=== PATIENT | female | born 1945 | race Caucasian/White ===

== ENCOUNTER → 2023-04-12 13:51 | Outpatient (CLI) | payer MEDICARE, OTHER, SELFPAY ==
--- NOTE | 2023-04-12 13:56 | DI.RAD.S_ITS ---
PROCEDURE: XR LUMBAR SPINE MIN 4V INDICATIONS: BACK PAIN TECHNIQUE: 4 views of the lumbar spine were acquired, including bilateral oblique views. COMPARISON: [facility], CT, CT CHEST ABDOMEN PELVIS WITH CONTRAST, 01/27/2023, 11:39. Outside Facility, CR, XR LUMBAR SPINE 2-3V, 09/13/2019, 10:50. FINDINGS: Bones: 5 nonrib-bearing vertebrae are present. There is extensive degenerative change and there is mild dextrocurvature centered at L2. No obvious compression fractures. Multilevel disc height loss and facet arthropathy. Soft tissues: Overlying bowel gas pattern is normal. No suspicious soft tissue calcifications. Oblique images: No pars defects. IMPRESSION: Severe degenerative change, scoliotic curvature, no obvious compression fractures. Dictated by: Ronal Cobb M.D. on 04/12/2023 at 16:33 Approved by: Ronal Cobb M.D. on 04/12/2023 at 16:36
== END ==
PROVIDERS: PCP Nurse Practitioner Family; Referring Provider Physical Medicine & Rehabilitation; Visit Provider Physical Medicine & Rehabilitation
DX: M47.26 Other spondylosis with radiculopathy, lumbar region (principal); M51.16 Intervertebral disc disorders with radiculopathy, lumbar region; M41.26 Other idiopathic scoliosis, lumbar region; M54.9 Dorsalgia, unspecified; Z85.118 Personal history of other malignant neoplasm of bronchus and lung; Z96.643 Presence of artificial hip joint, bilateral
CPT/HCPCS: 72110; 99214

== ENCOUNTER 2023-04-18 10:12 | Outpatient (CLI) | payer MEDICARE, OTHER, SELFPAY ==
[2023-04-18] VITALS (7 sets, daily range): BP systolic 90–128; BP diastolic 47–59; PULSE 62–69; RESP 12–20; TEMP 36.2; O2SAT 93–99
--- NOTE | 2023-04-18 10:45 | DI.RAD.S_ITS ---
PROCEDURE: PAIN L/S TRANSFORAMINAL INJECT INDICATIONS: STENOSIS COMPARISON: [facility], CR, XR LUMBAR SPINE MIN 4V, 04/12/2023, 13:58. FINDINGS: Fluoroscopic spot filming was performed to verify placement of spinal needles at the left L4-5 level(s), as labeled on the films. Appropriate location(s) of the needle tip(s) was confirmed by injection of iodinated contrast. IMPRESSION: Fluoroscopy for pain management. Dictated by: Anjelica Phan M.D. on 04/18/2023 at 13:30 Approved by: Anjelica Phan M.D. on 04/18/2023 at 13:30
[2023-04-18] MEDS: MIDAZOLAM 2 MG/2 ML VIAL IV (11:21)
[2023-04-18] MEDS: iopamidoL 15 ML VIAL 3 ML INJ (11:26)
[2023-04-18] MEDS: DEXAMETHASONE 10 MG/ML VIAL INJ (11:27)
[2023-04-18] MEDS: BETAMETHASONE 30 MG/5 ML MDV 6 MG INJ (11:28)
[2023-04-18] MEDS: BUPIVACAINE 0.25% (PF) VIAL 2 ML INJ (11:28)
--- NOTE | 2023-04-18 11:40 | P.PCN_ITS ---
Date/Time/Diagnoses Date of procedure: 04/18/23 Time of procedure: 11:40 Pre-procedure diagnosis: 1. FORAMINAL STENOSIS WITH LE SYMPTOMS Post-procedure diagnosis: same Procedure Notes Procedure: 1. FLUOROSCOPICALLY GUIDED CONTRAST CONTROLLED TRANSFORAMINAL EPIDURAL STEROID INJECTION - LEFT L4/5 Indications: Erin is referred by NELSON Ag for treatment of Foraminal Stenosis with Left LE Symptoms Physician: Kp Samuel Total Fluoroscopy time (seconds): 11 Total sedation minutes: 14 Complications: none Procedure in detail & Post-procedure care: FINDINGS Foraminal Nerve Root Compression secondary to disc disease and facet hypertrophy DESCRIPTION OF PROCEDURE Following review of allergy and review of potential side effects and complications, including, but not necessarily limited to, infection, allergic reaction, local tissue breakdown, stroke, temporary or permanent nerve injury, paralysis, and possible , the patient indicated that the patient understood and agreed to proceed. An informed consent document was signed by the patient, witnessed by a nurse, and placed in the patient's chart. Additionally, other treatment options including medications, modalities, and physical therapy were reviewed with the patient. After review of previous anaesthesic history and IV conscious sedation the patient was deemed safe to proceed with today?s procedure with IV conscious sedation as ASA class II designation. Safety time-out was performed to confirm patient ID, procedure to be performed and site of procedure. IV sedation was accomplished with a combination of 2mg of Versed administered by the RN after DO order, titrated to patient comfort during the course of the procedure while the patient remained responsive to all verbal commands In the prone position following sterile prep and drape of the lumbar region, the left L4/5 posterior neuroforamen was identified fluoroscopically. The skin was anesthetized via a 25-gauge 1.5-inch needle with 1% lidocaine solution. At this point, a 25-gauge 3.5-inch spinal needle was atraumatically introduced and advanced under fluoroscopic guidance through the posterior left L4/5 neuroforamen to approximately the anterior aspect of the canal. Depth was confirmed on lateral view. Following negative aspiration, injection of approximately 1.5cc of Isovue 200 under live fluoroscopy in the AP view confirmed excellent flow along the nerve root, into the epidural space without vascular or intrathecal uptake observed Radiological data, including multiple fluoroscopic views of the lumbosacral spine, reveal a spinal needle at the left L4/5 posterior neuroforamen. Subsequent views show flow of contrast material flowing superiorly and inferiorly along the nerve root confirming epidural flow. Subsequently, a test dose of 1.5 cc of 1% lidocaine solution was administered and patient was observed for two minutes for signs or symptoms of complications, including abdominal pain, shortness of breath, bilateral upper or lower extremity weakness, nausea and vomiting, prior to steroid injection. At this point, a total of 2cc or 10mg of dexamethasone and 6mg of betamethasone was injected without incident. The procedure tolerated the procedure well without signs or symptoms of complications prior to transfer to the recovery area continued monitoring without incident. The patient was then transferred to the recovery area where they were observed for an appropriate time after the injection. The patient reported a VAS score of 7 prior to the procedure and a post- procedure VAS of 0. POST OP INSTRUCTIONS The patient was provided a Pain Log to continue to record their response to the target-specific procedure prior to follow-up visit with their referring physicia n. Additionally, specific post-injection care instructions and a contact number to our office were provided if concerns arise regarding possible complications associated with the procedure are suspected.
== END 2023-04-18 12:10 | disposition home or self-care (01) ==
LOC: RAD 10:13
PROVIDERS: PCP Nurse Practitioner Family; Referring Provider Physical Medicine & Rehabilitation; Visit Provider Physical Medicine & Rehabilitation
DX: M48.061 Spinal stenosis, lumbar region without neurogenic claudication (principal); M51.16 Intervertebral disc disorders with radiculopathy, lumbar region; M47.26 Other spondylosis with radiculopathy, lumbar region
CPT/HCPCS: 64483; 99152; J0702; J1100; J2250; J3490

== ENCOUNTER → 2023-05-25 12:27 | Outpatient (CLI) | payer MEDICARE, OTHER, SELFPAY ==
--- NOTE | 2023-05-25 12:29 | DI.RAD.S_ITS ---
PROCEDURE: XR CERVICAL SPINE 4V OR 5V INDICATIONS: NECK PAIN TECHNIQUE: 5 views of the cervical spine acquired. COMPARISON: None. FINDINGS: Bones: No fractures or dislocations to the T1 level. Mild, approximately 3 millimeters of C3-C4 degenerative anterolisthesis. Oblique images demonstrate no severe bony foraminal stenoses. Spine degenerative disc disease and facet arthropathy. Soft tissues: No prevertebral soft tissue swelling. Left-sided Port-A-Cath. IMPRESSION: Multilevel degenerative disc disease. Multilevel facet arthropathy. No fracture. No acute osseous lesion. If symptoms and/or clinical suspicion for pathology persists, evaluation with CT or MRI should be considered for further assessment. Dictated by: Astrid Jean Baptiste MD, PhD on 05/25/2023 at 13:11 Approved by: Astrid Jean Baptiste MD, PhD on 05/25/2023 at 13:13
--- NOTE | 2023-05-25 12:29 | DI.RAD.S_ITS ---
PROCEDURE: XR SHOULDER LT MIN 2V INDICATIONS: LEFT SHOULDER PAIN TECHNIQUE: 3 views of the shoulder were acquired. COMPARISON: None. FINDINGS: Bones: No fractures or dislocations. No suspicious bony lesions. Visualized ribs appear intact. Mild acromioclavicular joint and glenohumeral joint arthrosis. Soft tissues: No suspicious soft tissue calcifications. IMPRESSION: No acute bony abnormality. Dictated by: Astrid Jean Baptiste MD, PhD on 05/25/2023 at 13:13 Approved by: Astrid Jean Baptiste MD, PhD on 05/25/2023 at 13:13
== END ==
PROVIDERS: PCP Nurse Practitioner Family; Referring Provider Physical Medicine & Rehabilitation; Visit Provider Physical Medicine & Rehabilitation
DX: M50.31 Other cervical disc degeneration, high cervical region (principal); M47.812 Spondylosis without myelopathy or radiculopathy, cervical region; M19.012 Primary osteoarthritis, left shoulder; M25.512 Pain in left shoulder
CPT/HCPCS: 72050; 73030

== ENCOUNTER → 2023-06-15 13:40 | Outpatient (CLI) | payer MEDICARE, OTHER, SELFPAY ==
--- NOTE | 2023-06-15 13:43 | DI.MRI.S_ITS ---
PROCEDURE: MR CERVICAL SPINE WO CON INDICATIONS: Cervical stenosis with radiculopathy TECHNIQUE: Noncontrast sagittal T1 spin echo and T2 fast spin echo, sagittal STIR, foraminal oblique sagittal T2 fast spin echo, and axial gradient echo or T2 fast spin echo through the cervical spine. COMPARISON: [facility], CT, CT CHEST ABDOMEN PELVIS WITH CONTRAST, 04/21/2023, 10:09. FINDINGS: Image quality: Excellent. Alignment and Curvature: Anterolisthesis of C3 on C4 measures 4 mm. Trace retrolisthesis of C6 on C7. Trace anterolisthesis of C7 on T1. Bone Marrow: Marrow demonstrates normal overall signal. Spinal Cord: Visualized spinal cord has normal size and signal. No cerebellar tonsillar herniation. Paraspinous Soft Tissues: No paravertebral masses. Prevertebral soft tissues are normal in thickness. Known thyroid goiter, previously described C2-C3: Left facet hypertrophy. No canal stenosis or foraminal stenosis. C3-C4: Disc height loss. 4 mm anterolisthesis of C3 on C4. Moderate canal stenosis. AP diameter of the central canal measures 8.5 mm. Bilateral uncovertebral joint hypertrophy. Prominent right facet hypertrophy. Mild left facet hypertrophy. Marked right foraminal narrowing with right foraminal C4 nerve root impingement. Mild to moderate left foraminal narrowing. C4-C5: Chronic disc height loss. Mild posterior disc post osteophyte. Borderline canal stenosis. AP diameter of the central canal measures 9.9 mm. Bilateral facet hypertrophy. Mild bilateral foraminal narrowing. C5-C6: Chronic disc height loss. Posterior osteophyte. Mild canal stenosis. AP diameter of the central canal is 9.2 mm. Bilateral facet hypertrophy and uncovertebral joint hypertrophy. Moderate bilateral foraminal narrowing with flattening deformity on the exiting bilateral C6 nerve roots. . C6-C7: Severe chronic disc height loss. Posterior disc post osteophyte. Mild canal stenosis. AP diameter of the central canal is 9.2 mm. Bilateral uncovertebral joint hypertrophy and facet hypertrophy. [id number] bilateral foraminal narrowing. C7-T1: No canal stenosis or significant foraminal stenosis. IMPRESSION: 1. Diffuse spondylitic change with multilevel uncovertebral joint hypertrophy and facet arthropathy. 2. Canal stenosis is moderate at C3-C4, borderline at C4-C5, and mild at C5-C6 and C6-C7. 3. Multilevel foraminal narrowing as described above. Findings include marked right foraminal narrowing at C3-C4 and moderate bilateral foraminal narrowing at C5-C6. Dictated by: Ronal Cobb M.D. on 06/15/2023 at 16:29 Approved by: Ronal Cobb M.D. on 06/15/2023 at 17:51
== END ==
PROVIDERS: PCP Nurse Practitioner Family; Referring Provider Physical Medicine & Rehabilitation; Visit Provider Physical Medicine & Rehabilitation
DX: M47.22 Other spondylosis with radiculopathy, cervical region (principal); M48.02 Spinal stenosis, cervical region
CPT/HCPCS: 72141

== ENCOUNTER 2023-06-20 10:13 | Outpatient (CLI) | payer MEDICARE, OTHER, SELFPAY ==
[2023-06-20] VITALS (10 sets, daily range): BP systolic 100–133; BP diastolic 55–64; PULSE 61–71; RESP 14–19; TEMP 36.6; O2SAT 92–96
--- NOTE | 2023-06-20 10:45 | DI.RAD.S_ITS ---
PROCEDURE: PAIN L/S TRANSFORAMINAL INJECT INDICATIONS: RADICULOPATHY COMPARISON: [facility], , PAIN L/S TRANSFORAMINAL INJECT, 04/18/2023, 12:25. FINDINGS: Fluoroscopic spot filming was performed to verify placement of spinal needles at the right L4-5 level(s), as labeled on the films. Appropriate location(s) of the needle tip(s) was confirmed by injection of iodinated contrast. IMPRESSION: Intra procedural examination demonstrating appropriate positions of the needles. Dictated by: Lionel Carrasco M.D. on 06/20/2023 at 14:10 Approved by: Lionel Carrasco M.D. on 06/20/2023 at 14:11
[2023-06-20] MEDS: MIDAZOLAM 2 MG/2 ML VIAL IV (11:04)
[2023-06-20] MEDS: iopamidoL 15 ML VIAL 3 ML INJ (11:08)
[2023-06-20] MEDS: BUPIVACAINE 0.25% (PF) VIAL 2 ML INJ (11:08)
[2023-06-20] MEDS: BETAMETHASONE 30 MG/5 ML MDV 6 MG INJ (11:08)
[2023-06-20] MEDS: DEXAMETHASONE 10 MG/ML VIAL INJ (11:09)
--- NOTE | 2023-06-20 11:24 | P.PCN_ITS ---
Date/Time/Diagnoses Date of procedure: 06/20/23 Time of procedure: 11:24 Pre-procedure diagnosis: 1. FORAMINAL STENOSIS WITH LE SYMPTOMS Post-procedure diagnosis: same Procedure Notes Procedure: 1. FLUOROSCOPICALLY GUIDED CONTRAST CONTROLLED TRANSFORAMINAL EPIDURAL STEROID INJECTION - RIGHT L4/5 TFESI Indications: Erin is referred by NELSON Ag for treatment of Foraminal Stenosis with Right LE Symptoms Physician: Kp Samuel Total Fluoroscopy time (seconds): 14 Total sedation minutes: 18 Complications: none Procedure in detail & Post-procedure care: FINDINGS Foraminal Nerve Root Compression secondary to disc disease and facet hypertrophy DESCRIPTION OF PROCEDURE Following review of allergy and review of potential side effects and complications, including, but not necessarily limited to, infection, allergic reaction, local tissue breakdown, stroke, temporary or permanent nerve injury, paralysis, and possible , the patient indicated that the patient understood and agreed to proceed. An informed consent document was signed by the patient, witnessed by a nurse, and placed in the patient's chart. Additionally, other treatment options including medications, modalities, and physical therapy were reviewed with the patient. After review of previous anaesthesic history and IV conscious sedation the patient was deemed safe to proceed with today?s procedure with IV conscious sedation as ASA class II designation. Safety time-out was performed to confirm patient ID, procedure to be performed and site of procedure. IV sedation was accomplished with a combination of 2mg of Versed was administered by the RN after DO order, titrated to patient comfort during the course of the procedure while the patient remained responsive to all verbal commands In the prone position following sterile prep and drape of the lumbar region, the right L4/5 posterior neuroforamen was identified fluoroscopically. The skin was anesthetized via a 25-gauge 1.5-inch needle with 1% lidocaine solution. At this point, a 25-gauge 3.5-inch spinal needle was atraumatically introduced and advanced under fluoroscopic guidance through the posterior right L4/5 neuroforamen to approximately the anterior aspect of the canal. Depth was confirmed on lateral view. Following negative aspiration, injection of approximately 1.5cc of Isovue 200 under live fluoroscopy in the AP view confirmed excellent flow along the nerve root, into the epidural space without vascular or intrathecal uptake observed Radiological data, including multiple fluoroscopic views of the lumbosacral spine, reveal a spinal needle at the right L4/5 posterior neuroforamen. Subsequent views show flow of contrast material flowing superiorly and inferiorly along the nerve root confirming epidural flow. Subsequently, a test dose of 1.5 cc of 1% lidocaine solution was administered and patient was observed for two minutes for signs or symptoms of complications, including abdominal pain, shortness of breath, bilateral upper or lower extremity weakness, nausea and vomiting, prior to steroid injection. At this point, a total of 2cc or 10mg of dexamethasone and 6mg of betamethasone was injected without incident. The procedure tolerated the procedure well without signs or symptoms of complications prior to transfer to the recovery area continued monitoring without incident. The patient was then transferred to the recovery area where they were observed for an appropriate time after the injection. The patient reported a VAS score of 7 prior to the procedure and a post- procedure VAS of 0. POST OP INSTRUCTIONS The patient was provided a Pain Log to continue to record their response to the target-specific procedure prior to follow-up visit with their referring physician. Additionally, specific post-injection care instructions and a contact number to our office were provided if concerns arise regarding possible complications associated with the procedure are suspected.
--- NOTE | 2023-06-20 12:52 | PC.NURSE ---
1240- Patient is steady on feet, she denies any further numbness or weakness to right leg. Walked without difficulty and has returned to baseline.
== END 2023-06-20 12:45 | disposition home or self-care (01) ==
PROVIDERS: PCP Nurse Practitioner Family; Referring Provider Physical Medicine & Rehabilitation; Visit Provider Physical Medicine & Rehabilitation
DX: M48.061 Spinal stenosis, lumbar region without neurogenic claudication (principal); M51.16 Intervertebral disc disorders with radiculopathy, lumbar region; M47.26 Other spondylosis with radiculopathy, lumbar region
CPT/HCPCS: 64483; 99152; J0702; J1100; J2250; J3490